=== PATIENT | male | born 2005 | race Hispanic/Latino ===

== ENCOUNTER 2024-10-10 08:55 | Emergency (ER) | payer SELFPAY ==
[~2024-10-10] VITALS: Ht 175.3 cm; Wt 78.9 kg
--- NOTE | 2024-10-10 09:19 | ERN ---
General Chief Complaint: Painful Urination Stated Complaint: BURNING URINATION Time Seen by MD: 09:55 Source: patient History of Present Illness Initial Comments Patient was seen in the ER at 9:55 a.m. Pt is a 19-year-old male came with the complaint of burning urination with penile discharge. Patient mentions that the pain aggravates in his penis when he coughs. Patient mentioned that he had unprotected sex a week and a half ago. Patient denies fevers, chills, rash. Patient denies any abdominal pain. Severity: mild Allergies: Coded Allergies: No Known Drug Allergies (Unverified Allergy, Unknown, 08/24/24) Past Medical History Past Medical History: No Pertinent History Past Surgical History: Other Surgical History Other: RT HAND SX Constitutional: (-) chills, (-) diaphoresis, (-) fever, (-) malaise, (-) weakness, (-) other documentation EENTM: (-) eye pain, (-) blurred vision, (-) tearing, (-) double vision, (-) ear pain, (-) ear discharge, (-) nose pain, (-) nose congestion, (-) throat pain, (-) Throat swelling, (-) mouth pain, (-) tooth pain, (-) mouth swelling, (-) other documentation Respiratory: (-) cough, (-) orthopnea, (-) short of breath, (-) stridor, (-) wheezing, (-) other documentation Cardiovascular: (-) chest pain, (-) edema, (-) palpitations, (-) syncope, (-) dyspnea on exertion, (-) other documentation Gastrointestinal/Abdominal: (-) nausea, (-) vomiting, (-) diarrhea, (-) abdom inal pain, (-) abdominal distention, (-) constipation, (-) rectal bleeding, (-) dark stool/melena, (-) other documentation Genitourinary: (+) penile discharge, (+) dysuria Musculoskeletal: (-) Neck pain, (-) back pain, (-) Flank Pain, (-) joint pain, (-) joint swelling, (-) muscle pain, (-) muscle stiffness, (-) gout, (-) other documentation Skin: (-) laceration, (-) contusion, (-) abrasion, (-) abscess, (-) rash, (-) change in color, (-) change in hair, (-) change in nails, (-) diaphoresis, (-) dryness, (-) other documentation Neuro: (-) altered mental status, (-) headache, (-) syncope, (-) paralysis, (-) numbness, (-) seizure, (-) pre-existing deficit, (-) tremors, (-) weakness, (-) dizziness, (-) slurred speech, (-) vertigo, (-) other documentation Psych: (-) depression, (-) suicidal ideation, (-) anxiety, (-) emotional problems, (-) auditory hallucinations, (-) visual hallucinations Hematologic/Lymphatic: (-) anemia, (-) blood clots, (-) easy bleeding, (-) easy bruising, (-) swollen glands, (-) other documentation Immunological/Allergic: (-) food allergy, (-) grass allergy, (-) mold allergy, (-) pollen allergy, (-) HIV/AIDS, (-) transplant, (-) othe documentation Physical Exam General Appearance: (+) no apparent distress Orientation: (+) alert, (+) oriented x 3 Head/Face Trauma: No Ear, Nose, Throat: (+) hearing grossly normal, (+) normal pharynx Neck: (+) normal inspection, (+) supple Respiratory: (+) lungs clear Heart: (+) regular Vascular: (+) no edema Gastrointestinal: (+) soft, (+) non-tender, (+) no organomegaly, (+) bowel sound present Genital: (+) penile discharge, (+) other documentation (No ulcer, rash, lesions seen.) Lymphatic: (+) no adenopathy Results Laboratory and Microbiology Lab and Micro Result Laboratory Tests Test 10/10/24 09:16 Urine Color YELLOW (YELLOW) Urine Appearance CLOUDY (CLEAR) H Urine pH 6.5 (5.0-8.0) Urine Specific [place] 1.028 (1.001-1.031) Urine Protein 30 mg/dL (NEGATIVE) H Urine Glucose (UA) NEGATIVE mg/dL (NEGATIVE) Urine Ketones NEGATIVE mg/dL (NEGATIVE) Urine Occult Blood SMALL (NEGATIVE) H Urine Nitrate NEGATIVE (NEGATIVE) Urine Bilirubin NEGATIVE mg/dL (NEGATIVE) Urine Urobilinogen 0.2 mg/dL (0.2-1.0) Urine Leukocyte Esterase 500 Pepper/uL (NEGATIVE) H Urine RBC 11-25 /HPF (0-1) H Urine WBC TNTC /HPF (0-1) H Urine WBC Clumps (Auto) FEW /HPF (0-1) Urine Squamous Epithelial Cells Few /HPF (0-2) Urine Bacteria Rare /HPF (None Seen) Labs Reviewed?: Yes MDM MDM: Differential diagnosis: UTI, chlamydia trachomatis, Rationale: Tests considered and ordered secondary to shared decision making include: labs. Previous outside records reviewed: Old ER visits. Risk of complication and/or morbidity or mortality of patient management: None Medications-Per medication reconciliation Need for hospitalization: Patient does not meet criteria for hospitalization. Need for emergency major/minor surgery: No Patient presents to the ER with a dysuria. Laboratory workup positive for UTI. Pending GC PCR patient will be notified of any abnormalities found. ED Course Orders Procedure Category Date Status Time Chlamydia & Gc Pcr RONY 10/10/24 In Process 09:07 Urinalysis LAB 10/10/24 Complete W/Microscopic 09:07 Culture Urine RONY 10/10/24 Logged 09:35 Ceftriaxone 1g Vial PHA 10/10/24 Logged (Rocephine 1g Inj) 10:30 Vital Signs Date Time Temp Pulse Resp B/P (MAP) Pulse Ox O2 Delivery O2 Flow Rate FiO2 10/10/24 09:15 98.4 70 16 128/67 98 Room Air* 0 21 10/10/24 08:59 98.1 70 18 125/68 99 Room Air 0 DX & DISP Disposition: Discharge Departure Impression: Primary Impression: UTI (urinary tract infection) Condition: Stable Scripts Cephalexin Monohydrate (Keflex) 500 Mg Cap 1 CAP PO BID for 10 Days, #20 CAP 0 Refills Prov: SHABANA CAT MD 10/10/24 Additional Instructions: FOLLOW-UP WITH PRIMARY CARE PROVIDER IN 1 TO 2 DAYS. TAKE MEDICATIONS DIRECTED HERE IN THE EMERGENCY ROOM. OKAY TO CONTINUE HOME MEDICATIONS UNLESS OTHERWISE DISCUSSED DURING YOUR VISIT IN THE EMERGENCY ROOM TODAY. RETURN TO YOUR NEAREST EMERGENCY ROOM IF SYMPTOMS WORSEN OR IF THERE IS NO IMPROVEMENT. CALL 911 IF YOU NEED IMMEDIATE ASSISTANCE. TAKE TYLENOL [id number] NEEDED AND IF NO CONTRAINDICATIONS ARE PRESENT. INCREASE ORAL HYDRATION. A WOUND CULTURE OR URINE CULTURE WAS ORDERED HERE IN THE EMERGENCY ROOM DEPARTMENT PLEASE FOLLOW-UP WITH PRIMARY CARE PROVIDER AND ADVISE THEM TO GET REPORTS FROM OUR FACILITY. IF YOU HAD ANY [place] WRAP/SPLINTS THAT WERE APPLIED HERE, PLEASE DO NOT REMOVE THEM UNTIL YOU SEE YOUR PRIMARY CARE OR SPECIALTY. Referrals: Referrals: SELF,REFERRAL (PCP) OBDULIO MCKEON MD Time of Disposition: 10:21 NATANAEL LICEA MD Oct 10, 2024 09:19 SHABANA CAT MD Oct 10, 2024 10:22
[2024-10-10 09:33] LABS: APPEARANCE,URINE CLOUDY (CLEAR); GLUCOSE, URINE (UA) NEGATIVE (NEGATIVE); LEUKOCYTE ESTERASE ,URINE 500 Leu/uL (NEGATIVE); NITRATE,URINE NEGATIVE (NEGATIVE); OCCULT BLOOD,URINE SMALL (NEGATIVE)
[2024-10-10 09:40] LABS: WBC CLUMP FEW /HPF (0-1)
[2024-10-10 09:55] LABS: SQUAMOUS EPITHELIAL CELL,UR Few /HPF (0-2)
[2024-10-10] MEDS ORDERED: CEPH500B PO (10:22)
[2024-10-10 11:13] VITALS: BP 112/51; PULSE 53; RESP 16; TEMP 98.5; O2SAT 99
--- NOTE | 2024-10-10 11:15 | NUR ---
DC PATIENT WAS DC'D BY DR CAT I EXPLAINED TO PATIENT TO FOLLOW UP WITH PCP, PROVIDED INFO BASED ON DIAGNOSIS, EXPLAINED NEW PRESCRIPTIONS AND HOW TO TAKE THEM, AND ANSWERED ANY FOLLOW UP QUESTIONS PATIENT AMBULATED OUT OF ED, NO COMPLICATIONS
== END 2024-10-10 11:10 | disposition home or self-care (01) ==
LOC: EDH 08:55
DX: N39.0 Urinary tract infection, site not specified (principal)
CPT/HCPCS: 99283; 87086; 87491; 87591; 81001; 96372; J0696